=== PATIENT | female | born 1995 | race Caucasian/White ===

== ENCOUNTER 2021-08-01 22:54 | Observation (INO) | payer BC, SELFPAY ==
--- NOTE | ~2021-08-01 | XR_ITS ---
EXAMINATION: XR chest 1V portable 08/02/2021 00:39 INDICATION: Chest palpitations PROCEDURE: AP portable chest COMPARISON: No prior studies for comparison. FINDINGS: The lungs are clear. The cardiomediastinal silhouette is within normal limits. There are no pleural effusions. There is no pneumothorax suspected. IMPRESSION: 1: NO ACUTE CARDIOPULMONARY DISEASE. Reviewed, dictated and finalized at location A.
[2021-08-01 22:58] VITALS: BP 119/69; PULSE 166; RESP 30; TEMP 37.7; O2SAT 100
--- NOTE | 2021-08-01 22:58 | ECG_ITS ---
Measurements Intervals [place] Rate: 153 P: 66 DC: 122 QRS: 108 QRSD: 81 T: 50 QT: 307 QTc: 490 Interpretive Statements SINUS TACHYCARDIA RIGHT AXIS DEVIATION INCOMPLETE RIGHT BUNDLE BRANCH BLOCK BASELINE ARTIFACT- I, III, AVR, AVL, V2 ABNORMAL ECG Electronically Signed On 08-02-2021 8:35:10 CDT by José Luis Gore D.O.
--- NOTE | 2021-08-01 23:26 | PC.NURSE ---
bedside test done - negative result en
[2021-08-01 23:28] LABS: Basophils Percent Auto 0.2 % (0.2-1.2); Eosinophils Absolute Auto 0.1 K/mm3 (0-0.3); Eosinophils Percent Auto 0.4 % (0-4.4); Hematocrit 42.4 % (37.0-47.0); Immature Granulocyte Absolute 0.05 K/mm3 (0.00-0.031); Immature Granulocyte Percent A 0.4 % (0-0.5); Lymphocytes Absolute Auto 1.33 K/mm3 (0.9-3.2); Lymphocytes Percent Auto 9.4 % (18.3-44.2); Mean Corpuscular HGB Conc 35.4 g/dl (32-36); Mean Corpuscular Hemoglobin 31.2 pg (26-34); Mean Corpuscular Volume 88.1 fl (80-100); Mean Platelet Volume 9.8 fl (7.4-10.4); Monocytes Absolute Auto 0.5 K/mm3 (0.1-0.6); Monocytes Percent Auto 3.8 % (2.6-8.5); Neutrophils Absolute Auto 12.2 K/mm3 (1.3-6.7); Neutrophils Percent Auto 85.8 % (45.5-73.1); Platelet Count Result 315 k/mm3 (150-375); Red Blood Count 4.81 M/mm3 (4.2-5.4); Red Cell Distribution Width 12.4 % (11.5-14.5); White Blood Count 14.2 K/mm3 (4.5-10.0)
[2021-08-01 23:35] LABS: Urine Pregnancy Test Negative
[2021-08-01 23:36] LABS: Pregnancy On Board Control Positive
[2021-08-01 23:38] LABS: INR 0.9; Partial Thromboplastin Time 23.8 SECONDS (22.3-36.8); Prothrombin Time 12.4 Seconds (11.1-14.7)
[2021-08-01 23:39] LABS: Anion Gap 11 mmol/L (8-16); Blood Urea Nitrogen 11 mg/dL (7-17); Calcium 9.6 mg/dL (8.4-10.2); Carbon Dioxide 23 mmol/L (22-30); Chloride 102 mmol/L (98-107); Estimated CRCL calculation 90 ml/min; Estimated Glomerular Filt Rate > 60; Glucose 133 mg/dL (65-110); Potassium 3.7 mmol/L (3.4-5.0); Sodium 136 mmol/L (137-145)
[2021-08-01 23:45] LABS: Amphetamine Screen Urine Negative (Negative); Barbiturate Screen Urine Negative (Negative); Benzodiazepines Screen Urine Negative (Negative); Cannabinoid Screen Urine Negative (Negative); Cocaine Screen Urine Negative (Negative); Methadone Screen Urine Negative (Negative); Opiate Screen Urine Negative (Negative); Phencyclidine Screen Urine Negative (Negative)
[2021-08-01 23:51] LABS: Troponin I < 0.012 ng/mL (0.000-0.034)
[2021-08-01 23:56] LABS: Add Urine Microscopic? YES; Appearance Urine Clear (Clear); Bacteria Urine Trace /hpf; Bilirubin Urine Negative (Negative); Blood Urine Negative (Negative); Color Urine Yellow (Yellow); Glucose Urine UA Negative (Negative); Ketones Urine Negative (Negative); Leukocyte Esterase Ur Trace LEU/UL (Negative); Mucus Urine Moderate /lpf; Nitrate Urine Negative (Negative); Protein Urine Negative (Negative); Specific Grav Ur 1.016 (1.001-1.035); Squamous Epithelial Cell Urine Moderate /hpf (Few); Urobilinogen Urine Negative mg/dL (<2.0)
[2021-08-02] VITALS (13 sets, daily range): BP systolic 88–113; BP diastolic 50–70; PULSE 95–123; RESP 10–20; TEMP 36.4–36.5; O2SAT 97–99
[2021-08-02] MEDS: SODIUM CHLORIDE 0.9% IV 1,000 ML 999 ML IV CONT ×2 (01:02→02:56)
[2021-08-02 01:41] LABS: Monoscreen Negative (Negative); Negative Monotest Control Negative (Negative); Positive Monotest Control Positive (Positive)
[2021-08-02] MEDS: EPINEPHrine HCL INJ 1 MG/ML AMPUL 0.3 MG IM (03:41)
--- NOTE | 2021-08-02 04:49 | ED.GENADULT ---
HPI - General Adult General Chief complaint: Allergic Reaction Stated complaint: hives Time Seen by Provider: 08/02/21 00:34 History of Present Illness HPI narrative: Patient is a 26-year-old female who presents ER with rash. Began in her abdomen earlier in the day has spread across her body. She was evaluated by an urgent care and given a shot of corticosteroids and has taken Benadryl x2. Rash continues to worsen. She has noted elevated heart rate. No difficulty breathing or swallowing. Rash is pruritic. No known bite. Patient had been on Macrobid for UTI last week but has completed the medication. No other oral medications being taken this time. Denies any change in laundry detergents or body washes. No known contact with allergens. Denies fevers or chills but temperature elevated here. Patient reports that the rash spreading has started to cover her hands and her knees. In her hands she feels like her joints are achy. She maintains range of motion. She denies concern for sexually transmitted infection. Sexually active with one partner for 4 years. No vaginal discharge or bleeding. No urinary frequency urgency or dysuria. Related Data Home Medications Medication Instructions Recorded Confirmed No Home Medications 08/02/21 08/02/21 Allergies Allergy/AdvReac Type Severity Reaction Status Date / Time No Known Allergies Allergy Mild Verified 08/02/21 02:23 Review of Systems Review of Systems: All systems reviewed & are unremarkable except as noted in HPI and below Constitutional: Constitutional: Denies chills, Denies fever(s) and Denies weakness ENT: Denies nasal congestion and Denies sore throat Cardiovascular: Cardiovascular: Denies chest pain, Reports rapid heart rate and Denies radiating jaw, neck or arm pain Respiratory: Respiratory: Denies cough, Denies dyspnea and Denies wheezing Gastrointestinal: Gastrointestinal: Denies abdominal pain, Denies nausea and Denies vomiting Musculoskeletal: Musculoskeletal: Reports arthralgias and Reports joint swelling Integumentary/Breasts: Skin/Breast: Reports pruritus, Reports erythema and Reports rash PMFSH Past Medical History Medical History (Updated 08/02/21 @ 06:55 by Amadou Larsen MD) Depression Surgical History Surgical History (Updated 08/02/21 @ 04:54 by Amadou Larsen MD) Hx of tonsillectomy Social History Social History Smoking status: Never smoker Second hand tobacco smoke exposure: Yes Alcohol intake: current Drinks per week: 1 Substance use: never Spiritual care concerns: No Exam Narrative: GENERAL: Ill-appearing, well-nourished, and in no acute distress. HEAD: Normocephalic, atraumatic. EYES: PERRL and EOMI. right upper eyelid edematous. ENT: Mucous membranes moist. Small area of swelling to the upper lip midline. Normal-appearing tongue and posterior oropharynx with midline uvula that is nonedematous. NECK: Supple. CHEST: Clear to auscultation. No respiratory distress. HEART: Tachycardic and regular. Normal peripheral pulses. ABDOMEN: Soft, nontender, nondistended. EXTREMITIES: Normal range of motion. Edema of the hands bilaterally with some redness at the knuckles. Additional erythema over the knees but do not seem to involve the joint. SKIN: Warm, dry. Diffuse urticarial rash. Large raised and red lesions to the abdomen. Across patient's back and shoulders these are smaller and circular with a diameter of approximately 1 cm. NEURO: Alert and oriented x3. PSYCH: Normal mood and affect. Course Course Emergency Course: Patient did not take the full course of her antibiotics finished them on July 27. Patient could be having delayed reaction to her antibiotics. Discussed case with hospitalist service will admit for scheduled steroids and some Benadryl. No real improvement in rash with IM epinephrine. Patient has had a soft blood pressure and has had 2 L of fluids. She did seem to have improveme
[2021-08-02] MEDS: methylPREDNISolone SOD SUCC 125 MG VIAL IV PUSH (05:24)
[2021-08-02] MEDS: diphenhydrAMINE HCl INJ 50 MG/ML VIAL 25 MG IV PUSH (05:24)
[2021-08-02] MEDS: SODIUM CHLORIDE 0.9% IV 1,000 ML 150 ML IV CONT (05:24)
--- NOTE | 2021-08-02 06:23 | PC.NURSE ---
admission information completed in ER. Pt under care of ER nurse.
[2021-08-02] MEDS: FAMOTIDINE 20 MG/2 ML VIAL IV PUSH (10:03)
[2021-08-02] MEDS: methylPREDNISolone SOD SUCC 125 MG VIAL 60 MG IV PUSH ×2 (11:35→18:06)
[2021-08-02] MEDS: SODIUM CHLORIDE 0.9% IV 1,000 ML 150 ML (13:25)
--- NOTE | 2021-08-02 16:49 | ADMGEN ---
This patient, Hattie Grigsby, was admitted to Medical Room 249-01. Patient/family oriented to hospital policies and general routines including ID bracelet, bed and alarms, visiting hours, pain management, procedures, bathroom and other care routines, personal items, smoking policy, room service/diet, and visiting hours. Information on how to activate the Rapid Response Team has been discussed. Patient/Family are encouraged to report perceived risks to care and to ask questions if they do not understand what they are told or what they should do.
--- NOTE | 2021-08-02 17:22 | PM.IMHP ---
H&P: HPI History of Present Illness Date/Time: 08/02/21 17:22 ER NOTES: HPI narrative: Patient is a 26-year-old female who presents ER with rash. Began in her abdomen earlier in the day has spread across her body. She was evaluated by an urgent care and given a shot of corticosteroids and has taken Benadryl x2. Rash continues to worsen. She has noted elevated heart rate. No difficulty breathing or swallowing. Rash is pruritic. No known bite. Patient had been on Macrobid for UTI last week but has completed the medication. No other oral medications being taken this time. Denies any change in laundry detergents or body washes. No known contact with allergens. Denies fevers or chills but temperature elevated here. Patient reports that the rash spreading has started to cover her hands and her knees. In her hands she feels like her joints are achy. She maintains range of motion. She denies concern for sexually transmitted infection. Sexually active with one partner for 4 years. No vaginal discharge or bleeding. No urinary frequency urgency or dysuria. 08/02 Interval hisotry: Patient was waiting in the emergency department since last night and just arrived on the floor, states the rash is resolved, does feel her hand and feet swelling, denies any chest pain shortness of breath, swelling of the throat, difficulty with swallow, she did show me the picture of the rash and appear like hives most likely allergic reaction possibly to Macrobid or some another agent, however patient is clinically stable, continues steroid, and Benadryl, will add Pepcid, will monitor if remains clinically stable will discharge the patient home tomorrow. patient admitted observation status Chief Complaint: rash Review of Systems Review of Systems: All systems reviewed & are unremarkable except as noted in HPI and below [facility] Past Medical History Medical History (Updated 08/02/21 @ 06:55 by Amadou Larsen MD) Depression Surgical History Surgical History (Updated 08/02/21 @ 04:54 by Amadou Larsen MD) Hx of tonsillectomy Social History Social History Smoking status: Never smoker Second hand tobacco smoke exposure: Yes Alcohol intake: current Drinks per week: 1 Substance use: never Spiritual care concerns: No Meds Home Medications and Allergies Home Medications Medication Instructions Recorded Confirmed Type No Home Medications 08/02/21 08/02/21 History Allergies Allergy/AdvReac Type Severity Reaction Status Date / Time No Known Allergies Allergy Mild Verified 08/02/21 02:23 Vital Signs Vital Signs - 24 hr 08/01/21 22:58 08/02/21 00:35 08/02/21 02:55 Temperature 99.9 F H Pulse Rate 166 H 123 H 112 H Respiratory Rate 30 H 15 10 L Blood Pressure 119/69 101/64 89/52 L Pulse Oximetry 100 99 97 08/02/21 03:56 08/02/21 04:49 08/02/21 06:12 Temperature Pulse Rate 110 H 113 H Respiratory Rate 15 20 Blood Pressure 88/54 L 95/56 L 100/56 L Pulse Oximetry 99 98 08/02/21 07:53 08/02/21 08:31 08/02/21 10:28 Temperature Pulse Rate 98 110 H 105 H Respiratory Rate 12 12 12 Blood Pressure 95/57 L 109/70 109/64 Pulse Oximetry 98 98 98 08/02/21 12:58 08/02/21 15:15 Temperature Pulse Rate 103 H 95 Respiratory Rate 12 12 Blood Pressure 102/60 113/69 Pulse Oximetry 98 98 Exam Narrative: Patient is comfortable, NAD HEENT: eyes are clear and none icteric LUNGS:CTA, no wheezing ABD: not distended Lower extremities: no edema SKIN: nonjaundiced, currently there is no rash Neuro: grossly intact. H&P: Results Labs Labs: Short CBC 08/01/21 Range/Units 23:18 WBC 14.2 H (4.5-10.0) K/mm3 Hgb 15.0 (12.0-15.0) g/dL Hct 42.4 (37.0-47.0) % Plt Count 315 (150-375) k/mm3 BMP 08/01/21 23:18 Sodium 136 L Potassium 3.7 Chloride 102 Carbon Dioxide 23 BUN 11 Creatinine 0.70 Glucose 133 H Calcium 9.6 Cardiac Enzymes 08/01/21 R
[2021-08-02] MEDS: ACETAMINOPHEN 325 MG TABLET 650 MG PO (18:06)
[2021-08-02] MEDS: FAMOTIDINE 20 MG TABLET PO (20:08)
[2021-08-03] VITALS: PULSE 64
[2021-08-03] MEDS: methylPREDNISolone SOD SUCC 125 MG VIAL 60 MG IV PUSH ×2 (00:03→05:50)
[2021-08-03 04:00] VITALS: PULSE 78
[2021-08-03 05:42] LABS: Alanine Aminotransferase 11 U/L (4-35); Albumin Level 3.4 g/dL (3.5-5.1); Alkaline Phosphatase 37 U/L (38-126); Anion Gap 7 mmol/L (8-16); Aspartate Amino Transferase 15 U/L (14-36); Bilirubin,Total 1.2 mg/dL (0.2-1.3); Blood Urea Nitrogen 7 mg/dL (7-17); Calcium 8.5 mg/dL (8.4-10.2); Carbon Dioxide 22 mmol/L (22-30); Chloride 110 mmol/L (98-107); Estimated CRCL calculation 149 ml/min; Estimated Glomerular Filt Rate > 60; Glucose 144 mg/dL (65-110); Potassium 3.9 mmol/L (3.4-5.0); Sodium 139 mmol/L (137-145)
[2021-08-03 07:44] VITALS: BP 101/51; PULSE 86; RESP 16; TEMP 36.2; O2SAT 100
[2021-08-03 08:00] VITALS: PULSE 106
[2021-08-03 08:18] LABS: Hematocrit 32.2 % (37.0-47.0); Hemoglobin 10.9 g/dL (12.0-15.0); Mean Corpuscular HGB Conc 33.9 g/dl (32-36); Mean Corpuscular Hemoglobin 31.2 pg (26-34); Mean Corpuscular Volume 92.3 fl (80-100); Mean Platelet Volume 10.8 fl (7.4-10.4); Platelet Count Result 226 k/mm3 (150-375); Red Blood Count 3.49 M/mm3 (4.2-5.4); Red Cell Distribution Width 13.1 % (11.5-14.5); White Blood Count 17.1 K/mm3 (4.5-10.0)
[2021-08-03] MEDS: FAMOTIDINE 20 MG TABLET PO (08:59)
--- NOTE | 2021-08-03 09:42 | PM.DS ---
DS: Admitting Diagnosis Discharge Date 08/03/2021 Admitting Diagnosis Allergic reaction rash DS: Discharge Diagnosis Discharge Diagnosis (1) Allergic reaction: Qualifiers: Encounter type: subsequent encounter Qualified Code(s): T78.40XD - Allergy, unspecified, subsequent encounter Code(s): T78.40XA - Allergy, unspecified, initial encounter Status: Acute Assessment and Plan: 08/02/21 17:22 ER NOTES: HPI narrative: Patient is a 26-year-old female who presents ER with rash. Began in her abdomen earlier in the day has spread across her body. She was evaluated by an urgent care and given a shot of corticosteroids and has taken Benadryl x2. Rash continues to worsen. She has noted elevated heart rate. No difficulty breathing or swallowing. Rash is pruritic. No known bite. Patient had been on Macrobid for UTI last week but has completed the medication. No other oral medications being taken this time. Denies any change in laundry detergents or body washes. No known contact with allergens. Denies fevers or chills but temperature elevated here. Patient reports that the rash spreading has started to cover her hands and her knees. In her hands she feels like her joints are achy. She maintains range of motion. She denies concern for sexually transmitted infection. Sexually active with one partner for 4 years. No vaginal discharge or bleeding. No urinary frequency urgency or dysuria. 08/02 Interval hisotry: Patient was waiting in the emergency department since last night and just arrived on the floor, states the rash is resolved, does feel her hand and feet swelling, denies any chest pain shortness of breath, swelling of the throat, difficulty with swallow, she did show me the picture of the rash and appear like hives most likely allergic reaction possibly to Macrobid or some another agent, however patient is clinically stable, continues steroid, and Benadryl, will add Pepcid, will monitor if remains clinically stable will discharge the patient home tomorrow. (2) Urticaria: Code(s): L50.9 - Urticaria, unspecified Status: Acute Assessment and Plan: most likely drug related DS: Summary Hospital Course Reason for hospitalization: HPI narrative: Patient is a 26-year-old female who presents ER with rash. Began in her abdomen earlier in the day has spread across her body. She was evaluated by an urgent care and given a shot of corticosteroids and has taken Benadryl x2. Rash continues to worsen. She has noted elevated heart rate. No difficulty breathing or swallowing. Rash is pruritic. No known bite. Patient had been on Macrobid for UTI last week but has completed the medication. No other oral medications being taken this time. Denies any change in laundry detergents or body washes. No known contact with allergens. Denies fevers or chills but temperature elevated here. Patient reports that the rash spreading has started to cover her hands and her knees. In her hands she feels like her joints are achy. She maintains range of motion. She denies concern for sexually transmitted infection. Sexually active with one partner for 4 years. No vaginal discharge or bleeding. No urinary frequency urgency or dysuria. Hospital Course: 08/02 Interval hisotry: Patient was waiting in the emergency department since last night and just arrived on the floor, states the rash is resolved, does feel her hand and feet swelling, denies any chest pain shortness of breath, swelling of the throat, difficulty with swallow, she did show me the picture of the rash and appear like hives most likely allergic reaction possibly to Macrobid or some another agent, however patient is clinically stable, continues steroid, and Benadryl, will add Pepcid, will monitor if remains clinically stable will discharge the patient home tomorrow. Patient is remains clinically stable, has no complaints of shortness of breath, or rash, will d
== END 2021-08-03 11:31 | disposition home or self-care (01) ==
LOC: ANHED 08-02 00:34 → ANHICU 08-02 06:55 → ANH2MED 08-03 09:42 → ANHICU 08-05 13:37
PROVIDERS: Admitting Provider Internal Medicine; Emergency Provider Emergency Medicine; Visit Provider Family Medicine
DX: L50.0 Allergic urticaria (principal); T78.40XA Allergy, unspecified, initial encounter
CPT/HCPCS: 36415; 71045; 80048; 80053; 80307; 81001; 81025; 84484; 85025; 85027; 85610; 85730; 86308; 87040; 87081; 87880; 93005; 96361; 96365; 96372; 96375; 99285; A9270; J0131; J0171; J1200; J2930; J7030